=== PATIENT | male | born 1975 | race American Indian/Alaskan Native ===

== ENCOUNTER 2021-08-30 13:33 | Emergency (ER) | payer BC ==
[2021-08-30] MEDS ORDERED: hydrALAZINE 10 MG TAB PO ONE (15:23)
--- NOTE | 2021-08-30 16:03 | XRay Report ---
CHEST 2 VIEWS INDICATION: dizziness. COMPARISON: none FINDINGS: Support devices: None. Heart: Within normal limits. Lungs/pleura: No acute air space or interstitial disease. No pleural abnormality or pneumothorax. Additional findings: None. IMPRESSION: No acute findings. Signer Name: Brandin Diego Jr, MD Signed: 08/30/2021 3:59 PM Workstation Name: [id number]
--- NOTE | 2021-08-30 16:14 | Cat Scan Report ---
CT BRAIN: 08/30/2021 INDICATION / CLINICAL INFORMATION: dizziness. COMPARISON: None available. FINDINGS: BRAIN/INTRACRANIAL STRUCTURES: Unenhanced CT images of the brain were obtained. There is no evidence of acute abnormality. Ventricles and sulci are normal in size and shape. There is no evidence of ischemic injury, hemorrhage, or mass. There are no abnormal extra-axial fluid collections. Incidental note is made of expanded opacified right ethmoid sinus, consistent with a focal ethmoid mu cocele. There is a 1.5 cm mucosal retention cyst in the inferior right maxillary sinus. EXTRACRANIAL STRUCTURES: Unremarkable. IMPRESSION: Negative unenhanced CT of the brain All CT scans at this location are performed using dose reduction to ALARA by means of automated expos ure control. Signer Name: Dejon Jha MD Signed: 08/30/2021 4:04 PM Workstation Name: [id number]
[2021-08-30 16:27] LABS: Hematocrit 39.4 % (35.5-45.6); Hemoglobin 12.5 gm/dl (11.8-15.2); Mean Corpuscular HGB Conc 32 % (32-34); Mean Corpuscular Volume 76 fl (84-94); Platelet Count 306 K/mm3 (140-440); Red Blood Count 5.17 M/mm3 (3.65-5.03); Red Cell Distribution Width 15.6 % (13.2-15.2)
[2021-08-30 16:38] LABS: Alanine Aminotransferase 16 units/L (7-56); Albumin 4.1 g/dL (3.9-5); BUN/Creatinine Ratio 9; Blood Urea Nitrogen 9 mg/dL (9-20); Calcium 9.2 mg/dL (8.4-10.2); Hemolysis Index 5
--- NOTE | 2021-08-30 17:18 | Emergency Department Report ---
ED Dizziness HPI - General Chief Complaint: High BP Stated Complaint: HBP Time Seen by Provider: 08/30/21 15:11 Source: patient Mode of arrival: Ambulatory Limitations: No Limitations - History of Present Illness Initial Comments: 46-year-old black male with a past medical history of hypertension presents to the emergency department for evaluation of elevated blood pressure along with dizziness. He states that he went to his primary care provider to have an abscess lanced on his neck, and while he was there, he was noted to have severely elevated blood pressure. He states that he received clonidine p.o. for for a total of 0.3 mg with the first dose being administered at 945 this a.m. He states that he only had minimal improvement in blood pressure and in no improvement in dizziness. He states that he was on blood pressure medication several years ago but he stopped them on his own and it has never restarted. He also complains of slight headache. He denies chest pain, shortness of breath, nausea, vomiting, vision changes, photophobia, and diaphoresis. MD Complaint: dizziness -: Gradual, days(s) Description: lightheadedness History of Same: No History of Trauma: No Severity: mild Associated Symptoms: denies: ataxia, chest pain, confusion, cough, diaphoresis, fever/chills, loss of appetite, malaise, rash, seizure, shortness of breath, syncope, weakness - Related Data Previous Rx's Medication Instructions Recorded Last Taken Type amLODIPine 10 mg PO DAILY #15 tab 08/30/21 Unknown Rx Allergies Allergy/AdvReac Type Severity Reaction Status Date / Time No Known Allergies Allergy Unverified 08/30/21 14:22 ED Review of Systems ROS: Stated complaint: HBP Other details as noted in HPI Comment: All other systems reviewed and negative Constitutional: denies: chills, fever Eyes: denies: eye pain, eye discharge, vision change ENT: denies: ear pain, congestion Respiratory: denies: cough, shortness of breath, SOB with exertion, SOB at rest, wheezing Cardiovascular: denies: chest pain, palpitations, dyspnea on exertion, orthopnea, edema, syncope, paroxysmal nocturnal dyspnea Gastrointestinal: denies: abdominal pain, nausea, vomiting, diarrhea, hemate mesis, melena, hematochezia Genitourinary: denies: urgency, dysuria, frequency, hematuria, discharge, testicular pain Musculoskeletal: denies: back pain Skin: denies: rash, lesions Neurological: headache. denies: weakness, numbness, paresthesias, confusion, abnormal gait, vertigo Psychiatric: denies: anxiety, depression ED Past Medical Hx - Medications Home Medications: Home Medications Medication Instructions Recorded Confirmed Last Taken Type amLODIPine 10 mg PO DAILY #15 tab 08/30/21 Unknown Rx ED Physical Exam - General Limitations: No Limitations General appearance: alert, in no apparent distress - Head Head exam: Present: atraumatic, normocephalic - Eye Eye exam: Present: normal appearance. Absent: conjunctival injection - Neck Neck exam: Present: normal inspection. Absent: lymphadenopathy - Respiratory Respiratory exam: Present: normal lung sounds bilaterally. Absent: respiratory distress, wheezes, rales, rhonchi, stridor, chest wall tenderness, accessory muscle use - Cardiovascular Cardiovascular Exam: Present: regular rate, normal heart sounds - GI/Abdominal GI/Abdominal exam: Present: soft, normal bowel sounds. Absent: distended, tend erness, guarding, rebound, rigid - Extremities Exam Extremities exam: Present: normal inspection, normal capillary refill. Absent: pedal edema, joint swelling, calf tenderness - Back Exam Back exam: Present: normal inspection. Absent: CVA tenderness (R), CVA tenderness (L), paraspinal tenderness, vertebral tenderness - Neurological Exam Neurological exam: Present: alert, oriented X3, CN II-XII intact, normal gait, reflexes normal. Absent: motor sensory deficit - Psychiatric Psychiatric exam: Present: normal affect, normal mood - Skin Skin exam: Present: warm, dry, intact, normal color ED Course Vital Signs 08/30/21 08/30/21 08/30/21 14:23 17:14 17:34 Temperature 97.8 F Pulse Rate 79 68 75 Respiratory 16 16 Rate Blood Pressure 176/112 Blood Pressure 173/112 184/111 [Right] O2 Sat by Pulse 98 98 Oximetry ED Medical Decision Making - Lab Data Result diagrams: 08/30/21 15:30 08/30/21 15:30 - EKG Data Interpretation: no acute changes - Radiology Data Radiology results: report reviewed, image reviewed CT scan of head without contrast: FINDINGS: BRAIN/INTRACRANIAL STRUCTURES: Unenhanced CT images of the brain were obtained. There is no evidence of acute abnormality. Ventricles and sulci are normal in size and shape. There is no evidence of ischemic injury, hemorrhage, or mass. There are no abnormal extra-axial fluid collections. Incidental note is made of expanded opacified right ethmoid sinus, consistent w ith a focal ethmoid mucocele. There is a 1.5 cm mucosal retention cyst in the inferior right maxill stanislav sinus. EXTRACRANIAL STRUCTURES: Unremarkable. IMPRESSION: Negative unenhanced CT of the brain Chest x-ray: FINDINGS: Support devices: None. Heart: Within normal limits. Lungs/pleura: No acute air space or interstitial disease. No pleural abnormality or pneumothorax. Additional findings: None. IMPRESSION: No acute findings. - Medical Decision Making 46-year-old black male with a past medical history of hypertension presents to the emergency department for evaluation of elevated blood pressure along with dizziness. He states that he went to his primary care provider to have an abscess lanced on his neck, and while he was there, he was noted to have severely elevated blood pressure. He states that he received clonidine p.o. for for a total of 0.3 mg with the first dose being administered at 945 this a.m. He states that he only had minimal improvement in blood pressure and in no im provement in dizziness. He states that he was on blood pressure medication several years ago but he stopped them on his own and it has never restarted. He also complains of slight headache. He denies chest pain, shortness of breath, nausea, vomiting, vision changes, photophobia, and diaphoresis. Patient continues to deny chest pain and shortness of breath. No gross abnormalities noted on labs, EKG without any acute abnormalities noted, troponin within normal limits, chest x-ray without any acute abnormalities, and CT scan without acute abnormalities noted. Heart score of 1. Patient will be discharged home on amlodipine 10 mg daily and advised to monitor and record his blood pressure and follow-up with his primary care provider in the next week for management of elevated blood pressure. He was advised to return to the emergency department for any concerning symptoms. He verbalized understanding of and agreement with plan of care. Critical care attestation.: If time is entered above; I have spent that time in minutes in the direct care of this critically ill patient, excluding procedure time. ED Disposition Clinical Impression: Dizziness, Elevated blood pressure reading Disposition: HOME / SELF CARE / HOMELESS Is pt being admited?: No Does the pt Need Aspirin: No Condition: Stable Instructions: Hypertension, Adult, [id number], Preventing Hypertension, Amlodipine tablets, Dizziness, [id number] Additional Instructions: Monitor and record blood pressure over the next few days and follow-up with primary care provider for management. Return to the emergency department as needed. Prescriptions: amLODIPine 10 mg PO DAILY #15 tab Referrals: JONATHAN BUTCHER MD [Referring] - 3-5 Days KAREN PLAZA MD [Staff Physician] - 3-5 Days Forms: Work/School Release Form(ED) Time of Disposition: 17:18 HEART Score - HEART Score History: Slightly suspicious EKG: Normal Age: < 45 Risk factors: 1-2 risk factors Troponin: Troponin T < 0.010 ng/mL (0.00-0.029) 08/30/21 15:30 Troponin: < normal limit HEART Score: 1 - Critical Actions Critical Actions: 0-3 pts:0.9-1.7%risk of adverse cardiac event.Candidate for discharge
[2021-08-30 17:40] VITALS: BP 184/111
--- NOTE | 2021-09-02 19:49 | Electrocardiograph Report ---
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
== END 2021-08-30 17:34 | disposition home or self-care (01) ==
LOC: ED 13:33
DX: R42 Dizziness and giddiness (principal); I10 Essential (primary) hypertension
CPT/HCPCS: 36415; 70450; 71046; 80053; 84484; 85027; 93005; 99284